=== PATIENT | male | born 1990 | race Caucasian/White ===

== ENCOUNTER 2018-09-29 02:01 | Inpatient (IN) | payer SELFPAY ==
[~2018-09-29] VITALS: Ht 193 cm; Wt 100.7 kg
[2018-09-29] MEDS ORDERED: ZOLP10TA PO (02:22)
[2018-09-29] MEDS ORDERED: UNABLE MC (02:23)
[2018-09-29] MEDS ORDERED: ZIPRASIDONE IM 20 MG VIAL. IM ONE (02:45)
[2018-09-29 02:50] LABS: BASO # 0.1 x10^3/uL (0.0-0.2); BASO % 1 % (0-3); EOS # 0.1 x10^3/uL (0.0-0.7); EOS % 2 % (0-3); HEMATOCRIT 36.4 % (39.0-53.0); HEMOGLOBIN 12.6 g/dL (13.0-17.5); LYMPH # 1.3 x10^3/uL (1.0-4.8); LYMPH % 18 % (24-48); MEAN CORPUSCULAR HEMOGLOBIN 32 pg (25-35); MEAN CORPUSCULAR HGB CONC 35 g/dL (31-37); MEAN CORPUSCULAR VOLUME 91 fL (79-100); MONO # 0.8 x10^3/uL (0.0-1.1); MONO % 11 % (0-9); NEUT % 69 % (31-73); PLATELET COUNT 220 x10^3/uL (140-400); RED CELL DISTRIBUTION WIDTH 13.4 % (11.5-14.5); WHITE BLOOD COUNT 7.3 x10^3/uL (4.0-11.0)
[2018-09-29 03:11] LABS: CALCIUM 9.2 mg/dL (8.5-10.1); GFR 90.3
[2018-09-29 03:17] LABS: ALBUMIN 3.7 g/dL (3.4-5.0); ALBUMIN/GLOBULIN RATIO 1.1 (1.0-1.7); TOTAL BILIRUBIN 0.3 mg/dL (0.2-1.0); TOTAL PROTEIN 7.2 g/dL (6.4-8.2)
[2018-09-29 03:19] LABS: ETHANOL < 10 mg/dL (0-10); SALIC < 2.8 mg/dL (2.8-20.0)
[2018-09-29 03:20] LABS: ACETAMIN < 2.0 mcg/ml (10-30)
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
[2018-09-29 05:12] LABS: BILIRUBIN,URINE NEGATIVE (NEG); CLARITY,URINE CLEAR; COLOR,URINE YELLOW; NITRITE,URINE NEGATIVE (NEG); PROTEIN,URINE NEGATIVE (NEG-TRACE); UROBILINOGEN,URINE 0.2 mg/dL (0.2 mg/dL)
[2018-09-29 05:19] LABS: AMPHETAMINE/METHAMPHETAMINE NEG (NEG); BARBITURATES NEG (NEG); BENZODIAZEPINES POS (NEG); CANNABINOIDS NEG (NEG); COCAINE NEG (NEG); METHADONE NEG (NEG); OPIATES NEG (NEG); PHENCYCLIDINE NEG (NEG)
[2018-09-29 05:24] LABS: BACTERIA,URINE 0 /HPF (0-FEW); RBC,URINE 0 /HPF (0-2); SQUAMOUS EPITHELIAL CELL,UR FEW /LPF; WBC,URINE 0 /HPF (0-4)
[2018-09-29] MEDS ORDERED: ONDANSETRON PF 4 MG/2 ML VIAL. IV PRN ×2 (08:00→09:00)
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
[2018-09-29] MEDS ORDERED: IV NORMAL SALINE 1000ML BAG 1,000 ML IV ONE (09:00)
[2018-09-29] MEDS ORDERED: ACETAMINOPHEN 500 MG TABLET PO PRN (09:00)
[2018-09-29] MEDS ORDERED: OLANZapine IM 10 MG VIAL. IM ONE (11:30)
[2018-09-29] MEDS ORDERED: HALOPERIDOL LACTATE 5 MG/ML VIAL. IVP PRN (11:30)
[2018-09-29] MEDS ORDERED: diphenhydrAMINE HCL 25 MG CAPSULE PO PRN (11:30)
--- NOTE | 2018-09-29 12:00 | NUR ---
This patient arrived from ED by demetrius, refuses vitals at this time. Patient is wanting to rest, and not be bothered, 1:1 at bedside. This nurse will continue to monitor. Will process admission when patient is more alert and able to answer questions, and is not refusing assessment. Addendum: 09/29/18 at 1927 by RHIANNA WILKINS RN 3 patient belongings bags were placed with stickers in the med room, as well as ED sent two bottles of medication to Pharmacy. Night nurse informed of both
[2018-09-29 15:50] VITALS: BP 90/43
[2018-09-29 16:10] VITALS: BP 94/40
[2018-09-29 16:40] VITALS: BP 105/47
[2018-09-29 17:10] VITALS: BP 119/67
[2018-09-29] MEDS: MORPHINE SULFATE 2 MG/ML VIAL. IV PRN ×2 (17:17→21:20)
--- NOTE | 2018-09-29 17:45 | NUR ---
This nurse called the PAT team about the evaluation for today, will come to eval the patient 09/30 at 0900 spoke with Elsy [phone]. This nurse will continue to monitor patient.
[2018-09-29 18:57] VITALS: BP 93/44
[2018-09-29] MEDS: tiZANidine 4 MG TABLET. PO PRN (21:18)
[2018-09-29 22:17] VITALS: BP 110/62
[2018-09-30] MEDS: fentaNYL PF VIAL 100 MCG/2 ML VIAL IV PRN ×7 (01:34→22:00)
[2018-09-30 03:00] VITALS: BP 100/50
[2018-09-30] MEDS: MORPHINE SULFATE 2 MG/ML VIAL. IV PRN (05:43)
[2018-09-30 07:05] VITALS: BP 103/50
[2018-09-30] MEDS: tiZANidine 4 MG TABLET. PO PRN (08:23)
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
[2018-09-30 11:00] VITALS: BP 126/64
[2018-09-30] MEDS ORDERED: oxyCODONE/APAP 5/325 1 TAB TABLET PO PRN (11:45)
[2018-09-30] MEDS: oxyCODONE/APAP 5/325 1 TAB TABLET PO PRN ×2 (12:36→18:34)
[2018-09-30] MEDS: METHYLPHENIDATE HCL 5 MG TABLET PO SCH ×2 (14:17→18:32)
[2018-09-30 15:00] VITALS: BP 119/89
[2018-09-30] MEDS: NICOTINE 21MG PATCH. TD SCH (15:00)
[2018-09-30] MEDS: SERTRALINE 50 MG TABLET. PO SCH (15:00)
[2018-09-30 19:00] VITALS: BP 116/68
[2018-09-30 23:27] VITALS: BP 131/80
[2018-10-01] VITALS (7 sets, daily range): BP systolic 111–155; BP diastolic 47–82
[2018-10-01] MEDS: oxyCODONE/APAP 5/325 1 TAB TABLET PO PRN ×5 (00:09→22:29)
[2018-10-01] MEDS: CYCLOBENZAPRINE 10 MG TABLET. PO PRN ×3 (00:09→22:28)
[2018-10-01] MEDS: fentaNYL PF VIAL 100 MCG/2 ML VIAL IV PRN ×6 (00:15→11:32)
--- NOTE | 2018-10-01 00:48 | NUR ---
Pt. has been speaking to this nurse about why he has felt like "killing" himself. Pt. tells this nurse details about why and how he just wants to see his fiance (who in 2016). Pt. has some hope for the future though. He hopes God listens to his prayers and takes "all the negative thoughts out" of his head.
[2018-10-01] MEDS: NICOTINE 21MG PATCH. TD SCH (08:27)
[2018-10-01] MEDS: SERTRALINE 50 MG TABLET. PO SCH (08:27)
[2018-10-01] MEDS: METHYLPHENIDATE HCL 5 MG TABLET PO SCH ×3 (08:27→17:49)
--- NOTE | 2018-10-01 08:34 | NUR ---
Pt. states he has an appointment with Garbage Person Viviana Guevara at 0830. Pt. asking she be called to inform her of his admittance to [facility]. Message left for PO at [phone].
[2018-10-01] MEDS ORDERED: METH5TAB12 PO ×2 (12:11)
[2018-10-01] MEDS ORDERED: Nicotine 21MG TD (12:11)
[2018-10-01] MEDS ORDERED: OXYC5TAB4 PO (12:11)
[2018-10-01] MEDS ORDERED: DIPH25CA58 PO (12:11)
[2018-10-01] MEDS ORDERED: SERT50TA8 PO (12:11)
[2018-10-01] MEDS ORDERED: IBUP-1027 PO (12:11)
--- NOTE | 2018-10-01 12:12 | SNU/HH DC ---
DISCHARGE ORDERS DISCHARGE INFORMATION: DISCHARGE DATE: Oct 01, 2018 FINAL DIAGNOSIS Problems Medical Problems: (1) Encounter for medical screening examination Status: Acute (2) Pyelonephritis Status: Acute CONDITION ON DISCHARGE: Stable CODE STATUS: Code Status: Full [facility] SNF STAY <30 DAYS: Yes POST DISCHARGE ORDERS: ACTIVITY ORDERS: No restrictions WEIGHT BEARING STATUS: No restrictions DIET AFTER DISCHARGE: Regular FOLLOW-UP: PHYSICIAN FOLLOW-UP: psychiatrist for suicide plan DISCHARGE MEDICATIONS: Home Meds Active Scripts Diphenhydramine Hcl (BENADRYL) 25 Mg Capsule, 25 MG PO PRN QHS PRN for INSOMNIA, #30 CAP Prov:JERALD ARZOLA MD 10/01/18 [Nicotine 21MG] 1 PATCH PATCH No Conflict Check, 1 PATCH TD DAILY, #7 Prov:JERALD ARZOLA MD 10/01/18 Ibuprofen (IBUPROFEN) 400 Mg Tablet, 400 MG PO PRN Q6HRS PRN for INFLAMMATION, #30 TAB Prov:JERALD ARZOLA MD 10/01/18 Oxycodone Hcl (OXYCODONE HCL IMMED.RELEASE ) 5 Mg Tablet, 10 MG PO PRN Q4HRS PRN for PAIN, #40 TAB Prov:JERALD ARZOLA MD 10/01/18 Methylphenidate Hcl (METHYLPHENIDATE HCL) 5 Mg Tablet, 20 MG PO Q24H for adhd, #30 TAB Prov:JERALD ARZOLA MD 10/01/18 Sertraline Hcl (SERTRALINE HCL) 50 Mg Tablet, 50 MG PO DAILY for depression, #30 TAB Prov:JERALD ARZOLA MD 10/01/18 Methylphenidate Hcl (METHYLPHENIDATE HCL) 5 Mg Tablet, 40 MG PO BID@0800,1300 for adhd, #60 TAB Prov:JERALD ARZOLA MD 10/01/18 Reported Medications Info (UNABLE TO OBTAIN MEDS FROM PRIOR TO ADMIT) Each, 1 EACH MC, EACH 09/29/18 Zolpidem Tartrate (AMBIEN) 10 Mg Tablet, 10 MG PO PRN QHS PRN for INSOMNIA, TAB 0 Refills 09/29/18 JERALD ARZOLA MD Oct 01, 2018 12:12
--- NOTE | 2018-10-01 12:30 | NUR ---
ERIKA Dang sitting with pt. She stated pt stated he did not feel well, then fell to the floor on his side and began shaking. RN entered room, UTILIZATION REVIEWER protected pt head and placed pillow. Pt on the floor shaking approximately 20 seconds. Pt. immediately able to answer questions. Stated he did not his his head but c/o back spasms which are not new to him. Dr. Reece on the floor during episode and Mike from PAT team. Pt. able to get back into bed without difficulty. Pt.states he has these episodes happen from time to time.
--- NOTE | 2018-10-01 12:42 | NUR ---
SS following up with discharge planning. PAT team contacted for assessment and recommendations. Elsy from the PAT team met with pt over the weekend. Mike from the PAT team visited with pt today. Pt was recently released from [facility] psych. Mike phoned and faxed referral to [facility] psych. SS currently waiting on acceptance decision from [facility] and will proceed accordingly with discharge planning.
--- NOTE | 2018-10-01 14:53 | RAD ---
Exam performed: CT scan of the head without contrast. Date of Service: 10/01/2018. Comparison: None available. Clinical History: Seizure episode. Technique: Helical acquisitions are obtained from the foramen magnum to the vertex without intravenous administration of contrast. Findings: The ventricles are midline without evidence of dilatation. Normal duggan-white differentiation is maintained. There is no extra axial fluid collection, intraparenchymal hemorrhage or mass lesion. The visualized portions of the orbits, paranasal sinuses and the mastoid air cells appear clear. The calvarium is intact. Impression: 1. No acute intracranial process detected. PQRS Compliance Statement: One or more of the following individualized dose reduction techniques were utilized for this examination: 1. Automated exposure control 2. Adjustment of the mA and/or kV according to patient size 3. Use of iterative reconstruction technique Electronically signed by: Martha London MD (10/01/2018 2:50 PM) [facility]
[2018-10-01] MEDS: oxyCODONE IR 5 MG TABLET PO PRN ×3 (15:03→23:00)
--- NOTE | 2018-10-01 15:26 | NUR ---
SS following up with discharge planning. [facility] psych contacted SS and declined pt due to acuity. Mike from the PAT team notified. Mike reported that he will send referral to [facility]. SS will continue to follow for discharge planning.
[2018-10-01] MEDS ORDERED: diazePAM 5 MG TABLET PO PRN (15:45)
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
[2018-10-01] MEDS: oxyCODONE ER 10 MG TAB.ER.12H PO SCH (16:39)
--- NOTE | 2018-10-01 18:05 | NUR ---
Pt. states R FA IV hurts, redness noted to IV site. Pt. asking if IV can be d/c'd and another started later if he needs it. IV d/c'd.
[2018-10-01] MEDS: IBUPROFEN 400 MG TABLET. PO PRN (20:54)
--- NOTE | 2018-10-02 00:05 | NUR ---
pt asleep @ this time.
--- NOTE | 2018-10-02 00:19 | NUR ---
awake @ this time, eating ice cream.
[2018-10-02 03:00] VITALS: BP 126/61
[2018-10-02] MEDS: oxyCODONE IR 5 MG TABLET PO PRN ×5 (04:35→22:22)
[2018-10-02] MEDS: oxyCODONE/APAP 5/325 1 TAB TABLET PO PRN (05:13)
--- NOTE | 2018-10-02 06:58 | NUR ---
Early part of the shift last night, pt claimed that he was still suicidal AM shift yesterday. Pt showed this RN an empty syringe. He said that he was looking for some poisonous substance to inject himself. Said syringe was disposed of properly. (Pt doesnt have IV access @ this time) Pt emptied the paper towel bowman, showing this RN that theres nothing hidden in there that could possibly be used to hurt himself. He even showed the trash that theres nothing in there. By 2100 before pt went to bed, he kneeled down and bowed before the cross together with this RN and prayed. After which he went to bed. After like 30 mins or so, pt called this RN and he had "pseudo seizures" lasting like 45 secs and after which this RN asked him if he needed anything. He responded "no." Pt slept on and off, getting up, do some walking around the unit and get food from the refrigerator. He continued to c/o back pain and pain meds were administered accordingly. He verbalized wanting to be a better man especially for this special girl. EEG staff called last night but pt was becoming anxious just the thought of having it done and he refused. He claimed he had EEG a couple of years ago and its negative. Before going to bed also last night, at some point pt became upset and angry at the thought of him being discharged from [facility] when he claimed he told them he's still suicidal. He claimed he's planning to michele them. Pt had been cooperative and pleasant to staff last night.
[2018-10-02 07:02] VITALS: BP 110/60
[2018-10-02] MEDS: SERTRALINE 50 MG TABLET. PO SCH (08:12)
[2018-10-02] MEDS: METHYLPHENIDATE HCL 5 MG TABLET PO SCH ×3 (08:12→18:24)
[2018-10-02] MEDS: NICOTINE 21MG PATCH. TD SCH (08:13)
[2018-10-02] MEDS: oxyCODONE ER 10 MG TAB.ER.12H PO SCH ×2 (08:13→20:54)
[2018-10-02] MEDS ORDERED: OXYC10TA46 PO (09:13)
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
[2018-10-02 09:36] LABS: ALBUMIN 3.8 g/dL (3.4-5.0); CALCIUM 9.5 mg/dL (8.5-10.1); GFR 90.3; POTASSIUM 4.5 mmol/L (3.5-5.1); TOTAL BILIRUBIN 0.4 mg/dL (0.2-1.0); TOTAL PROTEIN 7.8 g/dL (6.4-8.2)
[2018-10-02] MEDS: CYCLOBENZAPRINE 10 MG TABLET. PO PRN ×2 (10:47→22:22)
[2018-10-02] MEDS: IBUPROFEN 400 MG TABLET. PO PRN (10:47)
[2018-10-02 11:08] VITALS: BP 135/79
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
--- NOTE | 2018-10-02 14:14 | NUR ---
SS following up with discharge planning. Mike here to assess pt. Pt feeling better and 1:1 discontinued. Pt may discharge tomorrow to [facility], , [address], [address], [place] [address], via cab pass. Mike reported that pt has medication appointment scheduled with Dr. Velazquez on 10/10/2018 at 1400. Mike reported that pt will reopen case with [facility] at discharge.
[2018-10-02 15:07] VITALS: BP 147/74
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
[2018-10-02 19:15] VITALS: BP 141/86
[2018-10-02 22:52] VITALS: BP 106/76
[2018-10-02] MEDS ORDERED: ZOLPIDEM 5 MG TABLET. PO PRN (23:30)
--- NOTE | 2018-10-03 02:35 | NUR ---
0235--This nurse was in another patient's room at this time. HERLINDA Pimentel states to this nurse that casing operator has patient from room 434 on the phone and that he is at [facility]. This nurse goes to nurse's station and takes call. Finish Mender tells this nurse that patient is at [facility] and he was crying saying he doesn't know where he is. After speaking to casing operator, this nurse calls Nupur (nursing used car sales supervisor) and she states to this nurse that there is someone else on the other line and hangs up but then calls back a couple of minutes later. This nurse tells Nursing used car sales supervisor what she knows from casing operator. Nursing Superintendent Building asks what happened and this nurse states pt. was in his room around [id number] because this nurse had come out of another pt.'s room around that time and noticed pt. in his room. Nursing used car sales supervisor then states pt. will be brought back by ambulance and taken to ER for re-evaluation. Dr. Lozano was paged but a call back was not received. [id number]-- Pt. arrived on unit at this time. Vital signs were taken by HERLINDA Pimentel. Pt. asked HERLINDA Pimentel why was it so easy to sneak past all of nursing staff. [id number]-- This nurse then arrives in pt. room and asked pt. why he had left unit and pt. stated all he remembered was this nurse giving him ambien and next he's "in the middle of the street." Pt. also stated angrily that "no one even noticed I left even though there's plenty of staff on the floor." This nurse explained to pt. that an alarm will be on him from now on and if he needs to get up for anything, he will need to use his call light for help. This angered pt. and he stated he wants another nurse because it seemed that this nurse did not believe patient and that this nurse was mad.
[2018-10-03 03:45] VITALS: BP 106/57
[2018-10-03 07:00] VITALS: BP 117/65
[2018-10-03] MEDS: SERTRALINE 50 MG TABLET. PO SCH (08:36)
[2018-10-03] MEDS: oxyCODONE ER 10 MG TAB.ER.12H PO SCH (08:36)
[2018-10-03] MEDS: METHYLPHENIDATE HCL 5 MG TABLET PO SCH (08:36)
[2018-10-03] MEDS: NICOTINE 21MG PATCH. TD SCH (08:37)
[2018-10-03] MEDS: oxyCODONE IR 5 MG TABLET PO PRN (08:37)
--- NOTE | 2018-10-03 10:41 | NUR ---
Pt discharged home with self care. Discharge instructions and prescriptions discussed. Pt verbalized understanding. Stated he has f/U set up with his primary physician on Oct 10 @ 1430. Pt did not have IV access. Cab called. Pt stated he is going to his friends and then his friend will take him to his PO office. Belongings were packed by patient. Meds from pharmacy returned. Security returned pt bearden and cigarettes. Pt ambulated to main entrance and was secured in cab by ERIKA.
== END 2018-10-03 10:30 | disposition home or self-care (01) | DRG 918 ==
LOC: ER 02:01 → 4 NORTH 07:58 → EEVIPCON 07:58
PROVIDERS: ADMIT Internal Medicine; ATTEND Internal Medicine
DX: T42.4X2A Poisoning by benzodiazepines, intentional self-harm, initial encounter (principal); F32.9 Major depressive disorder, single episode, unspecified; F43.10 Post-traumatic stress disorder, unspecified; F44.5 Conversion disorder with seizures or convulsions; F25.9 Schizoaffective disorder, unspecified; F41.0 Panic disorder [episodic paroxysmal anxiety]; B19.20 Unspecified viral hepatitis C without hepatic coma; K74.60 Unspecified cirrhosis of liver; F14.90 Cocaine use, unspecified, uncomplicated; F11.10 Opioid abuse, uncomplicated; Y92.89 Other specified places as the place of occurrence of the external cause; Z59.0 Homelessness
CPT/HCPCS: 36415; 70450; 80053; 80307; 80329; 81001; 82140; 85025; 96372; 96374; G0480; J2270; J3010; J3486; 99285-25

== ENCOUNTER 2018-10-03 03:05 | Observation (INO) | payer SELFPAY ==
[~2018-10-03] VITALS: Ht 190.5 cm; Wt 100.7 kg
[~2018-10-03 03:05] MED LIST: DIPH25CA58 PO; IBUP-1027 PO; METH5TAB12 PO; Nicotine 21MG TD; OXYC10TA46 PO; OXYC5TAB4 PO; SERT50TA8 PO; UNABLE MC; ZOLP10TA PO
[2018-10-03 03:10] VITALS: BP 106/72
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
[2018-10-03 03:46] LABS: BASO % 1 % (0-3); EOS # 0.2 x10^3/uL (0.0-0.7); EOS % 4 % (0-3); HEMATOCRIT 34.6 % (39.0-53.0); HEMOGLOBIN 12.2 g/dL (13.0-17.5); LYMPH # 1.3 x10^3/uL (1.0-4.8); LYMPH % 28 % (24-48); MEAN CORPUSCULAR HEMOGLOBIN 32 pg (25-35); MEAN CORPUSCULAR HGB CONC 35 g/dL (31-37); MEAN CORPUSCULAR VOLUME 90 fL (79-100); MONO # 0.6 x10^3/uL (0.0-1.1); MONO % 12 % (0-9); NEUT # 2.5 x10^3/uL (1.8-7.7); NEUT % 55 % (31-73); PLATELET COUNT 209 x10^3/uL (140-400); RED BLOOD COUNT 3.87 x10^6/uL (4.30-5.70); RED CELL DISTRIBUTION WIDTH 13.3 % (11.5-14.5); WHITE BLOOD COUNT 4.6 x10^3/uL (4.0-11.0)
[2018-10-03 03:50] LABS: BILIRUBIN,URINE NEGATIVE (NEG); CLARITY,URINE CLEAR; COLOR,URINE YELLOW; NITRITE,URINE NEGATIVE (NEG); PH,URINE 6.5; PROTEIN,URINE NEGATIVE (NEG-TRACE); UROBILINOGEN,URINE 0.2 mg/dL (0.2 mg/dL)
[2018-10-03 03:58] LABS: CALCIUM 9.1 mg/dL (8.5-10.1); GFR 90.3
[2018-10-03 03:59] LABS: BARBITURATES NEG (NEG); BENZODIAZEPINES POS (NEG); CANNABINOIDS NEG (NEG); COCAINE NEG (NEG); METHADONE NEG (NEG); OPIATES POS (NEG); PHENCYCLIDINE NEG (NEG)
[2018-10-03] MEDS ORDERED: CYCLOBENZAPRINE 10 MG TABLET. PO PRN (04:00)
[2018-10-03] MEDS ORDERED: IBUPROFEN 400 MG TABLET. PO PRN (04:00)
[2018-10-03] MEDS ORDERED: oxyCODONE/APAP 5/325 1 TAB TABLET PO PRN (04:00)
[2018-10-03] MEDS ORDERED: ACETAMINOPHEN 500 MG TABLET PO PRN (04:00)
[2018-10-03] MEDS ORDERED: ONDANSETRON PF 4 MG/2 ML VIAL. IV PRN (04:00)
[2018-10-03 04:03] LABS: ALBUMIN 3.6 g/dL (3.4-5.0); MAGNESIUM 1.8 mg/dL (1.8-2.4); TOTAL BILIRUBIN 0.3 mg/dL (0.2-1.0); TOTAL PROTEIN 7.2 g/dL (6.4-8.2)
[2018-10-03 04:09] LABS: SALIC < 2.8 mg/dL (2.8-20.0)
[2018-10-03 04:09] LABS: AMPHETAMINE/METHAMPHETAMINE NEG (NEG)
[2018-10-03 04:11] LABS: ACETAMIN < 2 mcg/ml (10-30); ETHANOL < 10 mg/dL (0-10)
[2018-10-03 04:19] LABS: BACTERIA,URINE FEW /HPF (0-FEW); RBC,URINE OCC /HPF (0-2); SQUAMOUS EPITHELIAL CELL,UR FEW /LPF; WBC,URINE OCC /HPF (0-4)
[2018-10-03] MEDS ORDERED: METHYLPHENIDATE HCL 5 MG TABLET PO SCH ×2 (08:00→18:00)
[2018-10-03] MEDS: oxyCODONE IR 5 MG TABLET PO PRN (08:37)
[2018-10-03] MEDS ORDERED: oxyCODONE ER 10 MG TAB.ER.12H PO SCH (09:00)
[2018-10-03] MEDS ORDERED: SERTRALINE 50 MG TABLET. PO SCH (09:00)
[2018-10-03] MEDS ORDERED: NICOTINE 21MG PATCH. TD SCH (09:00)
[2018-10-19] MEDS: oxyCODONE IR 5 MG TABLET PO PRN (13:20)
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
== END 2018-10-03 10:30 | disposition home or self-care (01) ==
LOC: ER 03:05 → EEVIPCON 03:05 → ED HOLD 03:10 → UNDOADMOB 03:10 → 4 NORTH 03:11 → UNDODISOB 05:00
PROVIDERS: ADMIT Internal Medicine; ATTEND Internal Medicine
DX: R41.0 Disorientation, unspecified (principal); F43.10 Post-traumatic stress disorder, unspecified; F41.9 Anxiety disorder, unspecified; F32.9 Major depressive disorder, single episode, unspecified; Z87.891 Personal history of nicotine dependence; Z91.5 Personal history of self-harm; F14.90 Cocaine use, unspecified, uncomplicated; F11.90 Opioid use, unspecified, uncomplicated
CPT/HCPCS: 36415; 80053; 80307; 80329; 81001; 83735; 85025; 99284; G0378; G0480; G0379

== ENCOUNTER 2019-03-26 17:06 | Emergency (ER) | payer SELFPAY ==
[~2019-03-26] VITALS: Ht 193 cm; Wt 93.1 kg
[2019-03-26 18:00] VITALS: BP 117/65
[2019-03-26] MEDS ORDERED: PROM118S9 PO (18:04)
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
== END 2019-03-26 18:35 | disposition home or self-care (01) ==
LOC: ER 17:06
DX: R05 Cough (principal); F41.9 Anxiety disorder, unspecified; F32.9 Major depressive disorder, single episode, unspecified; F43.10 Post-traumatic stress disorder, unspecified; F14.90 Cocaine use, unspecified, uncomplicated; F15.90 Other stimulant use, unspecified, uncomplicated; Z98.890 Other specified postprocedural states
CPT/HCPCS: 99281

== ENCOUNTER 2020-09-26 21:09 | Emergency (ER) | payer OTHER ==
[~2020-09-26] VITALS: Ht 193 cm; Wt 86.4 kg
[~2020-09-26 21:09] MED LIST changes: +PROM118S10 PO; +SERT-267 PO; -SERT50TA8 PO
[2020-09-26] MEDS ORDERED: fentaNYL PF VIAL 100 MCG/2 ML VIAL IVP ONE (22:00)
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
[2020-09-26 22:35] LABS: BASO % 1 % (0-3); EOS % 0 % (0-3); HEMATOCRIT 36.4 % (39.0-53.0); HEMOGLOBIN 12.4 g/dL (13.0-17.5); LYMPH # 0.9 x10^3/uL (1.0-4.8); LYMPH % 15 % (24-48); MEAN CORPUSCULAR HEMOGLOBIN 30 pg (25-35); MEAN CORPUSCULAR HGB CONC 34 g/dL (31-37); MEAN CORPUSCULAR VOLUME 89 fL (79-100); MONO # 0.5 x10^3/uL (0.0-1.1); MONO % 10 % (0-9); NEUT # 4.2 x10^3/uL (1.8-7.7); NEUT % 74 % (31-73); PLATELET COUNT 227 x10^3/uL (140-400); RED BLOOD COUNT 4.11 x10^6/uL (4.30-5.70); RED CELL DISTRIBUTION WIDTH 13.3 % (11.5-14.5); WHITE BLOOD COUNT 5.6 x10^3/uL (4.0-11.0)
[2020-09-26 22:46] LABS: CALCIUM 8.9 mg/dL (8.5-10.1); CREATININE 1.1 mg/dL (0.7-1.3); GFR 79.7; POTASSIUM 3.6 mmol/L (3.5-5.1)
[2020-09-26 22:50] LABS: BARBITURATES NEG (NEG); BENZODIAZEPINES NEG (NEG); CANNABINOIDS NEG (NEG); COCAINE NEG (NEG); METHADONE NEG (NEG); OPIATES NEG (NEG); PHENCYCLIDINE NEG (NEG)
[2020-09-26 22:51] LABS: AMPHETAMINE/METHAMPHETAMINE NEG (NEG)
[2020-09-26 23:05] LABS: ALBUMIN/GLOBULIN RATIO 1.2 (1.0-1.7); MAGNESIUM 1.9 mg/dL (1.8-2.4); TOTAL BILIRUBIN 0.4 mg/dL (0.2-1.0); TOTAL PROTEIN 7.4 g/dL (6.4-8.2)
--- NOTE | 2020-09-26 23:08 | RAD ---
EXAMINATION: CT head and cervical spine without IV contrast INDICATION:30 years, Male, syncope. COMPARISON: None TECHNIQUE: Spiral acquisition of contiguous images from the skull base to the vertex were obtained. C T of the cervical spine was obtained using contiguous spiral imaging from the skull base to the upper thoracic level. Sagittal and coronal 2D reformatted series were provided by the technologist. Soft t issue and bone window algorithms were reviewed. Exposure: One or more of the following individualized dose reduction techniques were utilized for thi s examination: 1. Automated exposure control 2. Adjustment of the mA and/or kV according to patient size 3. Use of iterative reconstruction technique. FINDINGS: CT HEAD: The ventricles are normal in size. Neither mass, midline shift, intracranial hemorrhage, acute/subacu te ischemic changes, nor extraaxial fluid collections are seen. The brain parenchyma is normal in karine earance. The paranasal sinuses, mastoid air cells, and middle ears are clear. The orbital contents ap pear within normal limits. CT CERVICAL SPINE: Anatomic alignment of the cervical spine is maintained. Neither fracture, subluxation, nor traumatic spondylolisthesis is seen. The vertebral body heights and intervertebral disk spaces are preserved. T here is no evidence of a large intraspinal hematoma. The prevertebral and paravertebral soft tissues are within normal limits. IMPRESSION: CT HEAD: No evidence of acute intracranial abnormality. CT CERVICAL SPINE: No evidence of fracture or traumatic spondylolisthesis of the cervical spine. Electronically signed by: Maria Dolores Fontanez MD (09/26/2020 11:05 PM) [facility]
--- NOTE | 2020-09-26 23:15 | RAD ---
EXAMINATION: Chest Right shoulder radiographs. VIEWS: single view of the chest and 3 views of the left shoulder. COMPARISON: None INDICATION:30 years, Male, syncope, fall and shoulder pain. FINDINGS: Chest: Normal cardiomediastinal silhouette. No focal consolidation. No pleural effusion or pneumothor ax. No acute osseous process. Left shoulder: No acute fracture, dislocation or subluxation. No bone erosion or periosteal reaction. No soft tissue swelling. IMPRESSION: 1. No acute cardiopulmonary process. 2. No acute osseous process of the left shoulder. Electronically signed by: Maria Dolores Fontanez MD (09/26/2020 11:13 PM) [facility]
[2020-09-26 23:31] LABS: BILIRUBIN,URINE NEGATIVE (NEG); CLARITY,URINE CLEAR; COLOR,URINE YELLOW; NITRITE,URINE NEGATIVE (NEG); PH,URINE 5.5 (<5.0-8.0); PROTEIN,URINE NEGATIVE (NEG-TRACE); UROBILINOGEN,URINE 0.2 mg/dL (0.2 mg/dL)
[2020-09-26 23:32] LABS: BACTERIA,URINE 0 /HPF (0-FEW); RBC,URINE 0 /HPF (0-2); WBC,URINE 0 /HPF (0-4)
[2020-09-26 23:33] LABS: HYALINE CASTS, URINE OCCASIONAL /HPF
[2020-09-27 00:15] VITALS: BP 124/64
--- NOTE | 2020-09-27 14:54 | EKG ---
[facility] [address] [place] [address] Test Date: 2020-09-26 Test Time: 21:22:59 Pat Name: TASHI BACA Department: Room: Gender: M Panel Gluer: : 1990 Requested By: KRISTAL DOTSON Order Number: [id number] Reading MD: Measurements Intervals [place] Rate: 93 P: 11 WI: 166 QRS: 75 QRSD: 110 T: 38 QT: 378 QTc: 473 Interpretive Statements SINUS RHYTHM PROLONGED QT NO SPECIFIC ECG ABNORMALITIES RI6.02 No previous ECG available for comparison
== END 2020-09-27 00:30 | disposition home or self-care (01) ==
LOC: ER 21:09
DX: R55 Syncope and collapse (principal); M25.512 Pain in left shoulder; M43.6 Torticollis; F41.9 Anxiety disorder, unspecified; F32.9 Major depressive disorder, single episode, unspecified; F43.10 Post-traumatic stress disorder, unspecified; F17.200 Nicotine dependence, unspecified, uncomplicated
CPT/HCPCS: 36415; 70450; 71045; 72125; 73030; 80053; 80307; 81001; 83605; 83690; 83735; 84484; 85025; 93005; 96374; 99285; J3010